=== PATIENT | male | born 2000 | race Caucasian/White ===

== ENCOUNTER 2020-04-09 15:20 | Outpatient (REF) | payer MEDICAID, SELFPAY ==
--- NOTE | 2020-04-09 15:27 | XR_ITS ---
EXAMINATION: XR CERVICAL SPINE CLINICAL INFORMATION: Neck pain COMPARISON: None TECHNIQUE: 4 views of the cervical spine including swimmer's view were obtained. FINDINGS: There is mild curvature of the proximal cervical spine to the right and lower cervical and upper thoracic spine to the left. Bone alignment is otherwise normal. No fracture or dislocation is seen. Disc spaces are normal. Prevertebral soft tissues are normal. XR/XR cervical spine 2V IMPRESSION: Mild curvature of the cervical spine as described above. Otherwise unremarkable exam.
== END 2020-04-09 15:21 | disposition home or self-care (01) ==
LOC: HO.XRAY 15:20
PROVIDERS: PCP Physician Assistant; Visit Provider Physician Assistant
DX: M54.2 Cervicalgia (principal)
CPT/HCPCS: 72040

== ENCOUNTER 2020-08-01 21:12 | Emergency (ER) | payer OTHER, SELFPAY ==
--- NOTE | ~2020-08-01 | XR_ITS ---
EXAMINATION: XR NASAL BONES CLINICAL INFORMATION: hit nose with metal bar COMPARISON: None TECHNIQUE: 3 views of the nasal bones were obtained. FINDINGS: There are no definite fractures of the nasal bone seen. Some horizontal lucencies are seen overlying the left nasal bone but they appear to continue outside of the bone and are not felt to represent a fracture. XR/XR nasal bones min 3V IMPRESSION: No nasal bone fracture seen
[2020-08-01 21:39] VITALS: BP 113/75; PULSE 88; RESP 20; TEMP 37.1; O2SAT 95; BMI 23.0
--- NOTE | 2020-08-01 22:25 | ED.HEATRA ---
HPI - Head Injury General Chief complaint: Head Injury Stated complaint: Head injury Source: patient Mode of arrival: ambulatory Limitations: no limitations History of Present Illness HPI Narrative: 20-year-old male with no significant past medical history presents with nose bleed after [place] his head on [place] [employer] [place]. States that he felt a crack, but did not lose consciousness. Stated that his nose was bleeding but was able to get it to stop prior to my assessment. He does not describe any loss of consciousness, dizziness, lightheadedness, nausea, vomiting, changes in vision, chest pain or pressure, palpitations, shortness of breath, abdominal pain, loss of balance, or any other concerning symptoms. MD Complaint: head injury Onset (ago): hour(s) (Within the hour of arrival) Mechanism of Injury: sports related injury Place: outdoors Loss of Consciousness: no Location of injury: face Severity: moderate Severity scale (1-10): 6 Quality: aching Radiation: none Other Injuries: none Associated symptoms: denies other symptoms Related Data Previous Rx's Medication Instructions Recorded cyclobenzaprine 10 mg tablet 10 mg PO TID 7 Days #21 tab 04/08/20 diclofenac sodium 75 mg 75 mg PO BID 10 Days #20 tab 04/08/20 tablet,delayed release methylphenidate HCl 54 mg 54 mg PO DAILY 30 Days #30 tab 07/24/20 tablet,extended release 24 hr Allergies Allergy/AdvReac Type Severity Reaction Status Date / Time No Known Allergies Allergy Unknown unknown Verified 08/01/20 21:43 [NO KNOWN ALLERGIES] Review of Systems Review of Systems: Constitutional: No Fever, No Chills ENT/Mouth: No Ear Pain, No Hoarseness, No sore throat Eyes: No Eye Pain, No Swelling, No Redness, No Foreign Body Cardiovascular: No Chest Pain, No SOB Respiratory: No Cough, No Dyspnea Gastrointestinal: No Nausea, No Vomiting, No Diarrhea, No abdominal Pain Genitourinary: No Dysuria, No Hematuria Musculoskeletal: positive nasal and frontal head pain, No Myalgias, No Joint Swelling Skin: No Skin lacerations, No rash Neuro: No Weakness, No Numbness, No Paresthesias, No Loss of Consciousness, No Dizziness, No Headache Psych: No Anxiety/Panic, No Depression Heme/Lymph: no easy bruising, no Lymphadenopathy Endocrine: No Polyuria, No Polydipsia Yes all other systems are reviewed and are negative [facility] Past Medical History Attestation statement: The following information was validated with the patient. Source: old records reviewed Surgical History No pertinent past surgical history Family History Family History Father No problems noted. Mother No problems noted. Brother No problems noted. Sister No problems noted. Social History Social History Alcohol intake: current Alcohol intake frequency: holidays/special occasions only Smoking Status: Never smoker Advance Directives: No Advance Directives Information Provided: Yes Physical Exam Vital Signs: Vital Signs: Last Vital Signs Temp 98.8 F 08/01/20 21:39 Pulse 88 08/01/20 21:39 Resp 20 08/01/20 21:39 BP 113/75 08/01/20 21:39 Pulse Ox 95 08/01/20 21:39 Body Mass Index 23.0 Appearance: Alert. Oriented X3. No acute distress. Head: Normal external exam. Normocephalic. Atraumatic. No Mata signs noted. No raccoon eyes noted Eyes: PERRLA. EOMI. Conjunctiva and sclera normal. Eyelids normal. ENT: TM's Normal. Pharynx normal. Uvula midline. Moist mucous membranes. No trismus noted. No drooling noted. No muffled voice noted. No septal hematoma, both nares patent. Tenderness to the bridge of the nose. No malformation noted. Neck: Normal inspection. Neck supple. No adenopathy. Thyroid Normal. No meningeal signs. No neck mass noted. CVS: Normal heart rate and rhythm. Heart sound normal. No murmurs noted. Pulses equal to all extremities. Respiratory: No respiratory distress. Painless inspiration. Breath sounds normal. No wheezes/rales/rhonchi noted. Chest nontender. No accessory muscle usage noted or decreased air movement noted. Abdomen: Soft and nontender. Bowel sounds normal in all 4 quadrants. No distention noted. No organomegaly noted. No visible injury noted. Back: No CVA tenderness. Full range of motion noted. Skin: Skin warm and dry. Normal skin color. Normal skin turgor. No rashes/lesions/lacerations noted. Extremities: No lower extremity edema. Extremities exhibit normal range of motion. Extremities nontender. Neuro: cranial nerves 2-12 intact, no focal neural deficits, strength 5/5 to all extremities, No motor deficit. No sensory deficit. Course Course Course Narrative: 20-year-old male with no significant past medical history presents for head injury that occurred at a skate park. He hit his face into a metal pole, the had immediate epistaxis. Plan of care is for nasal bone x-rays. Tdap vaccine was updated 2 years ago. X-rays negative for acute findings. Plan of care is to discharge home with post concussive/concussion syndrome. Patient verbalized understanding of and agrees to plan of care discharge home. MDM - Head Injury MDM Narrative Medical decision making narrative: Nasal bone fracture, epistaxis Differential Diagnosis Differential diagnosis: Likely concussion without loss of consciousness and postconcussion syndrome Medical Records Attestation: I reviewed the patient's medical records. Imaging Data Nasal bones x-ray: Attestation: I personally reviewed and interpreted this imaging study as follows: Radiologist's impression: EXAMINATION: XR NASAL BONES CLINICAL INFORMATION: hit nose with metal bar COMPARISON: None TECHNIQUE: 3 views of the nasal bones were obtained. FINDINGS: There are no definite fractures of the nasal bone seen. Some horizontal lucencies are seen overlying the left nasal bone but they appear to continue outside of the bone and are not felt to represent a fracture. XR/XR nasal bones min 3V IMPRESSION: No nasal bone fracture seen Discharge Plan Discharge Clinical Impression: Concussion without loss of consciousness Qualifiers: Encounter type: initial encounter Qualified Code(s): S06.0X0A - Concussion without loss of consciousness, initial encounter Patient Disposition: Home, Self-Care Instructions: Concussion (ED), Post Concussion Syndrome (ED), Sports Concussion (ED) Additional Instructions: You were evaluated for head injury with a nose bleed. X-rays are negative for fractures. Your injuries are highly suspicious for concussion. Please follow-up with primary care physician for post concussive care. Thank you for choosing this emergency department for evaluation. Please follow-up with primary care physician as needed. Return to the emergency department for any new, concerning, or worsening symptoms. Prescriptions: No Action methylphenidate HCl 54 mg tablet extended release 24hr 54 mg PO DAILY 30 Days Qty: 30 RF: 0 cyclobenzaprine 10 mg tablet 10 mg PO TID 7 Days Qty: 21 RF: 0 diclofenac sodium 75 mg tablet,delayed release (DR/EC) 75 mg PO BID 10 Days Qty: 20 RF: 0 Stand Alone Forms: Work/School Release Interventions: ED Discharge Assessment Last Done: 08/02/20 00:10 Discharge Date/Time: 08/02/20 00:49
== END 2020-08-02 00:49 | disposition home or self-care (01) ==
PROVIDERS: Emergency Provider Internal Medicine; PCP Physician Assistant
DX: S06.0X0A Concussion without loss of consciousness, initial encounter (principal); J34.89 Other specified disorders of nose and nasal sinuses; Y93.51 Activity, roller skating (inline) and skateboarding; Y93.9 Activity, unspecified; Y92.488 Other paved roadways as the place of occurrence of the external cause; Y99.8 Other external cause status; Z79.899 Other long term (current) drug therapy
CPT/HCPCS: 70160; 99284

== ENCOUNTER 2021-02-25 13:49 | Outpatient (REF) | payer OTHER, SELFPAY ==
[2021-02-25 14:51] LABS: Influenza A PCR NEGATIVE (Negative); Influenza B PCR NEGATIVE (Negative); Resp Syncy Virus RNA Qual PCR NEGATIVE (Negative); SARS COV2 PCR INHOUSE NEGATIVE (Negative)
== END 2021-02-25 13:50 | disposition home or self-care (01) ==
LOC: HO.LNP 13:49
PROVIDERS: Visit Provider Internal Medicine
DX: Z20.822 Contact with and (suspected) exposure to COVID-19 (principal); R43.9 Unspecified disturbances of smell and taste
CPT/HCPCS: 0241U

== ENCOUNTER 2021-04-12 15:43 | Emergency (ER) | payer OTHER, SELFPAY ==
--- NOTE | ~2021-04-12 | XR_ITS ---
EXAMINATION: XR SOFT TISSUE NECK CLINICAL INDICATION: Sore throat and drooling. COMPARISON: None TECHNIQUE: 2 views of the soft tissue neck were obtained. Findings: The nasopharyngeal and pharyngeal airway is widely patent. A prominent soft tissue density seen in the oropharynx question prominent lingual adenoids versus swollen soft palate uvula. There is no ballooning of the airway. The epiglottis is normal. XR/XR soft tissue neck IMPRESSION: Likely enlarged bilateral tonsils without any airway narrowing or distention. Differential diagnoses includes swollen soft palate uvula.
--- NOTE | ~2021-04-12 | CT_ITS ---
EXAMINATION: CT SOFT TISSUE NECK WITH CONTRAST CLINICAL INFORMATION: Right peritonsillar abscess. COMPARISON: None TECHNIQUE: Following the intravenous administration of 100 mL of Omnipaque 350 intravenous contrast, helical imaging was performed in the axial plane with generation of coronal and sagittal reformatted images. This CT examination was performed using dose optimization techniques as appropriate, variously including the following: *Automated exposure control *Adjustment of mA and/or kV according to patient size (this includes techniques or standardized protocols for targeted exams where dose is matched to indication/reason for exam; i.e. extremities or head) *Use of iterative reconstruction technique DLP: 1002 mGy-cm FINDINGS: No cervical adenopathy is identified. The parotid glands are homogeneous in attenuation. The submandibular glands are normal. There is bilateral heterogeneous enlarged lingular tonsils with narrowing and deviation of activity to the left. Small right peritonsillar abscess suspected at the level of hard palate measuring 23 Hounsfield units on axial image 24/8. There is edema extending into the right tongue base and lateral hypopharynx. There is moderate narrowing of oropharyngeal airway. The laryngeal structures are normal. The parapharyngeal fat is preserved. The carotid sheath vasculature opacify normally. No extra mucosal soft tissue mass or fluid collection is seen. No retropharyngeal fluid collection is seen. The thyroid gland is normal. The superior mediastinum is unremarkable. The lung apices are clear. The mastoid air cells and visualized portions of the paranasal sinuses are well-aerated. The temporomandibular joints are normal. No periapical disease is identified. No osseous abnormalities are seen. The imaged portions of the brain parenchyma are unremarkable. CT/CT soft tissue neck w con IMPRESSION: Bilateral lingual tonsillar hypertrophy secondary to inflammatory infectious etiology. There is a small right peritonsillar abscess at the level of hard palate and more edema on the right side extending through the hypopharynx and to the base of the tongue. No abnormal lymphadenopathy. The sinuses are clear.
[2021-04-12 15:51] VITALS: BP 139/84; PULSE 98; RESP 18; TEMP 36.8; O2SAT 99; BMI 23.7
--- NOTE | 2021-04-12 16:42 | ED_ITS ---
HPI - General Adult General Chief complaint: General Medical Stated complaint: swollen throat Time Seen by Provider: 04/12/21 16:09 Source: patient Mode of arrival: ambulatory Limitations: no limitations History of Present Illness HPI narrative: Patient complaining of sore throat for last 3- 4 days painful to swallow mostly pain on the right side of the throat, no fever no chills muffled voice painful to swallow no difficulty breathing Related Data Previous Rx's Medication Instructions Recorded amoxicillin 500 mg capsule 500 mg PO TID 5 Days #15 cap 03/12/21 methylphenidate HCl 54 mg 54 mg PO DAILY 30 Days #30 tab 04/07/21 tablet,extended release 24 hr amoxicillin 875 mg-potassium 1 tab PO BID #20 tab 04/12/21 clavulanate 125 mg tablet (Augmentin) ibuprofen 600 mg tablet 600 mg PO Q6H PRN #20 tab 04/12/21 Allergies Allergy/AdvReac Type Severity Reaction Status Date / Time No Known Allergies Allergy Unknown unknown Verified 04/12/21 15:51 [NO KNOWN ALLERGIES] Review of Systems Review of Systems: Yes all other systems are reviewed and are negative [facility] Past Medical History Surgical History No pertinent past surgical history Family History Family History Father No problems noted. Mother No problems noted. Brother No problems noted. Sister No problems noted. Social History Social History Housing: House Alcohol intake: current Alcohol intake frequency: holidays/special occasions only Patient Tobacco Use Status: Never used Tobacco e-Cigarette/Vaping Use: Never Used Second Hand Smoke Exposure: No Advance Directives: No Advance Directives Information Provided: Yes service: No Current occupational status: employed Current occupation: [employer] Physical Exam Vital Signs: Vital Signs: Last Vital Signs Temp 98.3 F 04/12/21 15:51 Pulse 98 04/12/21 15:51 Resp 18 04/12/21 15:51 BP 139/84 04/12/21 15:51 Pulse Ox 99 04/12/21 15:51 BMI result Body Mass Index 23.7 Appearance: Alert. Oriented X3. No acute distress. ENT: Pharynx normal. Oral Mucosa moist unable to open mouth completely because of pain, right tonsillar swelling Neck: Normal inspection. Neck supple. No stridor CVS: Normal heart rate and rhythm. Pulses normal. Respiratory: No respiratory distress. Equal air entry bilateral, Skin: Skin warm and dry. Normal skin color. Normal skin turgor. Neuro: Oriented X 3. Const: General: well developed and in distress moderate Orientation/consciousness: patient oriented x3 HENMT: Mouth/tongue images: 1. Swollen tonsils with bulging on the right side Neck: Neck: Yes normal visual inspection and Yes no lymphadenopathy Resp: Effort & Inspection: normal respiratory effort Auscultation: clear to auscultation bilaterally Cardio: Rate: regular rate Rhythm: regular rhythm Heart sounds: S1 normal heart sound present and S2 normal heart sound present Neuro: General: patient oriented x3 Procedures Abscess I/D Site: other (Right peritonsillar abscess) Local Anesthetic: other anesthetic (Lidocaine 4% spray) Amount of anesthesia used (mL): 5 Technique: needle aspiration Amount of fluid expressed (mL): 0 Medical Decision Making MDM Narrative Medical decision making narrative: Patient's small right peritonsillar abscess needle aspiration was tried 3 times no pus drained. Procedure abandoned. We will give patient Decadron and IV Rocephin 1 dose discharge patient home no respiratory distress at this time Lab Data Result diagrams: 04/12/21 16:50 04/12/21 16:50 Labs: Lab Results 04/12/21 04/12/21 Range/Units 16:50 16:50 WBC 14.6 H (4.8-10.8) X10*3/uL RBC 5.07 (4.60-5.80) X10*6/uL Hgb 15.0 (14.0-18.0) g/dl Hct 44.8 (42.0-52.0) % MCV 88.4 (80.0-98.0) fL MCH 29.6 (27.0-33.0) pg MCHC 33.5 (31.0-36.0) g/dl RDW 12.4 (11.0-16.0) % Plt Count 344 (160-400) X10*3/uL MPV 9.9 (9.4-12.4) fL Immature Gran % (Auto) 0.3 (0.0-0.4) % Neut % (Auto) 79.8 H (45-73) % Lymph % (Auto) 9.5 L (20-40) % [place] % (Auto) 10.1 (2-11) % Eos % (Auto) 0.1 (0-4) % Baso % (Auto) 0.2 (0-2) % Lymph # (Auto) 1.4 (1.2-4.9) X10*3/uL [place] # (Auto) 1.5 H (0.1-1.2) X10*3/uL Eos # (Auto) 0.0 (0.0-0.4) X10*3/uL Baso # (Auto) 0.0 (0.0-0.2) X10*3/uL Abs Immat Gran (auto) 0.05 H (0.00-0.03) X10*3/uL Absolute Neuts (auto) 11.7 H (2.0-8.3) x10*3/uL Absolute Nucleated RBC 0.000 (0.0-0.012) X10*3/uL Nucleated RBC % (auto) 0.0 (0.0-0.2) /100WBC Sodium 137 (135-145) mmol/L Potassium 4.2 (3.3-5.1) mmol/L Chloride 99 (96-108) mmol/L Carbon Dioxide 29 (22-29) mmol/L Anion Gap 13 (12-20) BUN 6 L (9-16) mg/dL Creatinine 0.93 (0.5-1.4) mg/dL Estim Creat Clear Calc 132.6 Estimated GFR > 60 Random Glucose 102 (60-115) mg/dL Calcium 9.8 (8.4-10.2) mg/dL Discharge Plan Discharge Clinical Impression: Abscess, peritonsillar Patient Disposition: Home, Self-Care Instructions: Peritonsillar Abscess (ED) Additional Instructions: Drink plenty of fluids Antibiotics as advised Follow with ENT if not better Prescriptions: New ibuprofen 600 mg tablet 600 mg PO Q6H PRN (Reason: pain) Qty: 20 RF: 0 amoxicillin-pot clavulanate [Augmentin] 875-125 mg tablet 1 tab PO BID Qty: 20 RF: 0 No Action methylphenidate HCl 54 mg tablet extended release 24hr 54 mg PO DAILY 30 Days Qty: 30 RF: 0 amoxicillin 500 mg capsule 500 mg PO TID 5 Days Qty: 15 RF: 0 Referrals: Scott Ga [Physician] - 5 days
[2021-04-12] MEDS: Ketorolac Tromethamine 30 MG/ML VIAL IVPUSH (16:51)
[2021-04-12] MEDS: dexAMETHasone sod phosphate 10 MG/ML VIAL IVPUSH (16:51)
[2021-04-12 16:53] LABS: MANUAL DIFF FLAG NO
[2021-04-12 16:55] LABS: Basophils Percent Auto 0.2 % (0-2); Eosinophils Percent Auto 0.1 % (0-4); Hematocrit 44.8 % (42.0-52.0); Imm Gran Abs Auto 0.05 X10*3/uL (0.00-0.03); Imm Gran Pct Auto 0.3 % (0.0-0.4); Lymphocytes Absolute Auto 1.4 X10*3/uL (1.2-4.9); Lymphocytes Percent Auto 9.5 % (20-40); Mean Corpuscular HGB Conc 33.5 g/dl (31.0-36.0); Mean Corpuscular Hemoglobin 29.6 pg (27.0-33.0); Mean Corpuscular Volume 88.4 fL (80.0-98.0); Mean Platelet Volume 9.9 fL (9.4-12.4); Monocytes Absolute Auto 1.5 X10*3/uL (0.1-1.2); Monocytes Percent Auto 10.1 % (2-11); Neutrophils Absolute Auto 11.7 x10*3/uL (2.0-8.3); Neutrophils Percent Auto 79.8 % (45-73); Platelet Count 344 X10*3/uL (160-400); Red Blood Count 5.07 X10*6/uL (4.60-5.80); Red Cell Distribution Width 12.4 % (11.0-16.0); White Blood Count 14.6 X10*3/uL (4.8-10.8)
[2021-04-12] MEDS: cefTRIAXone sodium 1 GM in 0.9 % Sodium Chloride 50 ML IV (16:55)
[2021-04-12 17:16] LABS: Anion Gap 13 (12-20); Blood Urea Nitrogen 6 mg/dL (9-16); Calcium 9.8 mg/dL (8.4-10.2); Carbon Dioxide 29 mmol/L (22-29); Chloride 99 mmol/L (96-108); Creatinine Clr Calc Pharmacy 132.6; Estimated Glomerular Filt Rate > 60; Glucose Random 102 mg/dL (60-115); Potassium 4.2 mmol/L (3.3-5.1); Sodium 137 mmol/L (135-145)
[2021-04-12] MEDS: iohexoL 350 MG/ML 100 ML INFUS..BTL 60 ML IV (17:49)
== END 2021-04-12 19:24 | disposition home or self-care (01) ==
PROVIDERS: Emergency Provider Internal Medicine; PCP Physician Assistant
DX: J36 Peritonsillar abscess (principal)
CPT/HCPCS: 36415; 70360; 70491; 80048; 85025; 96365; 96375; 99283; 99284; J0696; J1100; J1885; Q9967

== ENCOUNTER 2021-06-07 11:28 | Outpatient (REF) | payer OTHER, SELFPAY ==
--- NOTE | ~2021-06-07 | XR_ITS ---
EXAMINATION: XR ankle RT 2V CLINICAL INFORMATION: Reason for Exam M25.571 - Pain in right ankle and joints of right foot COMPARISON: None. TECHNIQUE: 3 view series right ankle FINDINGS: Mild soft tissue prominence is present adjacent to the lateral malleolus. The talar dome is intact. No fractures or subluxations are identified. Base of the fifth metatarsal appears intact. No dystrophic calcifications or arthropathic changes visualized. XR/XR ankle RT 2V IMPRESSION: Lateral malleolar soft tissue inflammatory changes. No fractures.
== END 2021-06-07 11:29 | disposition home or self-care (01) ==
LOC: HO.HMGCX 11:28
PROVIDERS: Visit Provider Physician Assistant
DX: M25.571 Pain in right ankle and joints of right foot (principal)
CPT/HCPCS: 73600

== ENCOUNTER 2021-12-08 09:26 | Outpatient (REF) | payer OTHER, SELFPAY ==
--- NOTE | ~2021-12-08 | XR_ITS ---
EXAMINATION: XR ELBOW, RIGHT CLINICAL INFORMATION: Sprain COMPARISON: None TECHNIQUE: AP, lateral, and oblique views of the right elbow. FINDINGS: No fracture or dislocation. No joint effusion. No focal soft tissue swelling. Tiny osteophyte off the coronoid process. No radiopaque foreign body. XR/XR elbow RT min 3V IMPRESSION: No fracture, dislocation or joint effusion.
== END 2021-12-08 09:27 | disposition home or self-care (01) ==
LOC: HO.HMGCX 09:26
PROVIDERS: PCP Physician Assistant; Visit Provider Internal Medicine
DX: S53.401A Unspecified sprain of right elbow, initial encounter (principal)
CPT/HCPCS: 73080

== ENCOUNTER 2022-11-28 18:28 | Emergency (ER) | payer OTHER, SELFPAY ==
--- NOTE | ~2022-11-28 | US_ITS ---
EXAMINATION: US SCROTUM CLINICAL INFORMATION: Pain. Swelling. COMPARISON: None available. TECHNIQUE: A sonogram of the scrotum was performed assessing ashley-scale appearance and color Doppler flow. Spectral Doppler analysis of the arterial and venous flow were performed in the testes bilaterally. FINDINGS: RIGHT: Right testicle measures 5.1 x 2.6 x 3.0 cm, volume 21 mL. No focal testicular parenchymal lesions are visualized. Spectral Doppler analysis of the arterial and venous flow is normal in the right testis. Right epididymal head is normal in size. No right hydrocele or varicocele is seen. Right epididymal color signal is normal. LEFT: Left testicle measures 4.9 x 2.6 x 3.2 cm, volume 21 mL. No focal testicular parenchymal lesions are visualized. Spectral Doppler analysis of the arterial and venous flow is minimally increased subjectively in the left testis. Left epididymal head is normal in size. No left hydrocele or varicocele is seen. Left epididymal color signal is normal. US/US scrotum IMPRESSION: No focal testicular abnormality. Doppler vascular waveforms and color signal present within each testicle No abscess demonstrated
--- NOTE | ~2022-11-28 | US_ITS ---
EXAMINATION: US SCROTUM CLINICAL INFORMATION: Pain. Swelling. COMPARISON: None available. TECHNIQUE: A sonogram of the scrotum was performed assessing ashley-scale appearance and color Doppler flow. Spectral Doppler analysis of the arterial and venous flow were performed in the testes bilaterally. FINDINGS: RIGHT: Right testicle measures 5.1 x 2.6 x 3.0 cm, volume 21 mL. No focal testicular parenchymal lesions are visualized. Spectral Doppler analysis of the arterial and venous flow is normal in the right testis. Right epididymal head is normal in size. No right hydrocele or varicocele is seen. Right epididymal color signal is normal. LEFT: Left testicle measures 4.9 x 2.6 x 3.2 cm, volume 21 mL. No focal testicular parenchymal lesions are visualized. Spectral Doppler analysis of the arterial and venous flow is minimally increased subjectively in the left testis. Left epididymal head is normal in size. No left hydrocele or varicocele is seen. Left epididymal color signal is normal. US/US scrotum doppler IMPRESSION: No focal testicular abnormality. Doppler vascular waveforms and color signal present within each testicle No abscess demonstrated
[2022-11-28 18:46] VITALS: BP 117/71; PULSE 64; RESP 18; TEMP 37.1; O2SAT 96; BMI 25.1
--- NOTE | 2022-11-28 18:47 | ED.MALEGU ---
HPI - Male Genitourinary General Chief complaint: General Medical Stated complaint: swollen testicles Time Seen by Provider: 11/28/22 20:29 Source: patient Mode of arrival: ambulatory History of Present Illness HPI Narrative: 22-year-old male with subjective swelling of testicles left-sided greater than right this started approximately 1300 this afternoon and denies any acute trauma, denies any pain but endorses some discomfort . He denies any fevers or chills or penile discharge. He does report mild abdominal discomfort. Related Data Previous Rx's Medication Instructions Recorded simethicone 80 mg chewable tablet 80 mg PO TID-QID PRN abdominal 07/07/22 (Gas Relief 80 (simethicone)) distention 30 days #120 tabs pantoprazole 20 mg tablet,delayed 20 mg PO DAILY #30 tabs 08/02/22 release Allergies Allergy/AdvReac Type Severity Reaction Status Date / Time No Known Allergies Allergy Unknown unknown Verified 07/07/22 11:29 [NO KNOWN ALLERGIES] Review of Systems Review of Systems: Pertinent positives and negatives as stated in [facility] Past Medical History Source: nursing notes reviewed Surgical History No pertinent past surgical history S/P tonsillectomy Family History Family History Father No problems noted. Mother No problems noted. Brother No problems noted. Sister No problems noted. Social History Social History Housing: House Alcohol intake: current Alcohol intake frequency: holidays/special occasions only Patient Tobacco Use Status: Never used Tobacco e-Cigarette/Vaping Use: Former Use Second Hand Smoke Exposure: No Advance Directives: No Advance Directives Information Provided: No service: No Current occupational status: employed Current occupation: [employer] Cognitive needs: No Hearing needs: No Vision needs: Yes (contacts) Physical Exam Vital Signs: Vital Signs: Last Vital Signs Temp 98.8 F 11/28/22 18:46 Pulse 64 11/28/22 18:46 Resp 18 11/28/22 18:46 BP 117/71 11/28/22 18:46 Pulse Ox 96 11/28/22 18:46 O2 Del Method Room Air 11/28/22 18:46 BMI result Body Mass Index 25.1 VITAL SIGNS: Reviewed. GENERAL: Well developed, well nourished, in no acute distress. HEAD: Normocephalic/atraumatic EYES: PERRLA, EOMI LUNGS: Normal breath sounds. No adventitious sounds or accessory muscle use. SpO2<96> CARDIOVASCULAR: Regular rate and rhythm without noted murmurs ABDOMEN: Soft, non-tender, non-distended with bowel sounds. : [[employer]-Sade]-scrotum is without erythema or induration, no epididymal tenderness to palpation, no perineal erythema/induration/pain, no noted hernia MUSCULOSKELETAL: No tenderness, deformities, or effusions noted on gross inspection. EXTREMITIES: No cyanosis, clubbing or edema. SKIN: Inspection of the skin reveals no rashes NEUROLOGIC: Alert and oriented x 4. Strength and sensation to light touch were grossly intact x 4. Course Course Course Narrative: RME: 22yo M w/PMHx [employer], GERD, ADHD, c/o swollen left testicle x today w/ assoc LLQ abdominal pain since 2PM. Denies N/V, injury/fall, discharge, urinary sx UA, STI testing, US ordered Full HPI, ROS and PE to be performed by primary ED provider. Medical Decision Making Medical Decision Making [facility] Narrative: 22-year-old male with history and clinical presentation, DDX: STI, UTI, no clinical suspicion for testicular torsion, possible varicocele, no clinical suspicion for scrotal cellulitis/Gavin's/inguinal hernia I reviewed all investigations and urinalysis is negative for UTI or hematuria. Testicular ultrasound does not demonstrate any evidence for torsion and no evidence of epididymitis or varicocele. Low clinical suspicion for STI at this time and instructed patient follow-up on STI results by accessing the patient portal. Differential Diagnosis Differential Diagnoses: The differential diagnosis associated with the presentation includes Please see the discussion above Admission/Observation Consideration of admission/observation: Escalation of care including admission/observation considered Please see the discussion above Lab Data [facility] Lab Attestation statement: I reviewed the patient's lab results. Please see the discussion above Labs: Lab Results 11/28/22 Range/Units 20:08 Urine Color Yellow Urine Appearance Clear Urine pH 6.5 (5.0-9.0) Ur Specific [place] 1.010 (1.005-1.025) Urine Protein Negative (Neg-Trace) mg/dL Urine Glucose (UA) Negative (Negative) mg/dL Urine Ketones Negative (Negative) mg/dL Urine Blood Negative (Negative) Urine Nitrite Negative (Negative) Ur Leukocyte Esterase Negative (Negative) Radiology Impression Discussion of test interpretation with radiology: I have reviewed the radiologist's reading. Radiologist Impression: Please see the discussion above Discharge Plan Discharge Clinical Impression: Testicular discomfort Patient Disposition: Home, Self-Care Instructions: Scrotal Pain (ED) Additional Instructions: 1. Recommend [id number] Tylenol/ibuprofen as needed for any discomfort. 2. Recommend the use of briefs for the next 3-4 days to help relieve any discomfort or swelling you may be experiencing. 3. I recommend that you follow-up on the patient portal for any remaining tests. 4. Please follow-up with primary care provider on Wednesday morning. Return to the ER for any worsening symptoms. Prescriptions: No Action pantoprazole 20 mg tablet,delayed release (DR/EC) 20 mg PO DAILY Qty: 30 1RF simethicone [Gas Relief 80 (simethicone)] 80 mg tablet,chewable 80 mg PO TID-QID PRN (Reason: abdominal distention) 30 Days Qty: 120 0RF Referrals: Chano Hi PA-C [Primary Care Provider] -
[2022-11-28 20:16] LABS: Appearance Urine Clear; Color Urine Yellow; Glucose Urine UA Negative (Negative); Leukocyte Esterase Urine Negative (Negative); Nitrite Urine Negative (Negative); PH 6.5 (5.0-9.0); Urine Blood Negative (Negative); Urine Ketones Negative (Negative); Urine Protein Negative (Neg-Trace)
--- OUTSIDE RECORDS SUMMARY | 2022-11-28 20:41 | XMS_ITS | Continuity of Care Document ---
Author Name Unknown Organization [facility] ter Address [address] [place] [id number]- Care Team Providers Care Dry Janitor Name Role Phone Josephine MATTHEW, Madison Turner Primary Care Physician Encounter [facility] [place] Date(s): 05/19/19 - 05/19/[address] [address]- [facility] Encounter Diagnosis Testicular pain(Final) - 05/19/19 Discharge Disposition: A-D/C Home Attending Physician: Alan Akbar MD Admitting Physician: Alan Akbar MD Referring Physician: Not on Staff, Referring MD Allergies, Adverse Reactions, Alerts Substance Reaction Severity Status NKA Active Immunizations Given and Recorded Vaccine Date Status Refusal Reason Varicella Virus Vaccine 1 11/11/07 Given Varicella Virus Vaccine 2 06/12/99 Given Tet/Diphth/Acel, Pertussis (oldterm) 3 11/11/07 Gi jodie Poliovirus Vaccine, Inactivated 4 06/20/02 Given Poliovirus Vaccine, Inactivated 5 02/25/99 Given Poliovirus Vaccine, Inactivated 6 98 Given Poliovirus Vaccine, Inactivated 7 98 Given Measles/Mumps/Rubella Virus Vaccine 8 06/20/02 Giv en Measles/Mumps/Rubella Virus Vaccine 9 06/12/99 Giv en Diphth/Pertussis,Acel/Tetanus (oldterm) 10 06/20/02 Given Diphth/Pertussis,Acel/Tetanus (oldterm) 11 09/26/99 Given Diphth/Pertussis,Acel/Tetanus (oldterm) 12 02/25/99 Given Diphth/Pertussis,Acel/Tetanus (oldterm) 13 98 Given Diphth/Pertussis,Acel/Tetanus (oldterm) 14 98 Given Prevnar Inj (oldterm) 15 12/27/00 Given Haemophilus B Conj Vaccine (oldterm) 16 09/26/99 G iven Haemophilus B Conj Vaccine (oldterm) 17 02/25/99 G iven Haemophilus B Conj Vaccine (oldterm) 18 98 G iven Haemophilus B Conj Vaccine (oldterm) 19 98 G iven Hepatitis B Vaccine (old term) 20 02/25/99 Given Hepatitis B Vaccine (old term) 21 98 Given Hepatitis B Vaccine (old term) 98 Given 1Admin Note: VIS 06/09/07 2Admin Note: [facility] 3Admin Note: VIS 10/07/05 4Admin Note: [facility] 5Admin Note: [facility] 6Admin Note: [facility] 7Admin Note: [facility] 8Admin Note: [facility] 9Admin Note: [facility] 10Admin Note: [facility] 11Admin Note: [facility] 12Admin Note: [facility] 13Admin Note: [facility] 14Admin Note: [facility] 15Admin Note: [facility] 16Admin Note: [facility] 17Admin Note: [facility] 18Admin Note: [facility] 19Admin Note: [facility] 20Admin Note: [facility] 21Admin Note: [facility] Medications methylphenidate 36 mg oral tablet, extended release 1 tablet = 36 mg, By Mouth, Daily in AM, Fill on or after 09/05/17, # 30 tablet, 0 Refills, Maintenance, 07/06/17 14:20:03 EDT Start Date: 07/06/17 Status: Ordered methylphenidate 54 mg oral tablet, extended release 1 tablet = 54 mg, By Mouth, Daily in AM, Fill on or after 09/05/17, # 30 tablet, 0 Refills, Maintenance, 07/06/17 14:20:04 EDT, ER Tablet Start Date: 07/06/17 Status: Ordered Tenex 1 mg oral tablet 1 mg, 1, tablet, By Mouth, 2 times a day, # 60 tablet, Refills 3, Tot. Refills 3, Maintenance, 07/06/17 14:20:30 EDT, Route to Pharmacy Electronically, [id number], [facility]/pharmacy #[id number] Start Date: 07/06/17 Status: Ordered Problem List Condition Effective Dates Status Health Status Inform ant ADHD(Confirmed) 02/18/11 Active Vital Signs Most recent to oldest [Reference Range]: 1 2 3 Height 178 cm (05/19/19 7:41 PM) 178 cm (05/19/19 6:06 PM) 178 cm (05/19/19 5:07 PM) Oxygen Saturation [94-100 %] 99 % (05/19/19 7:41 PM) 100 % (05/19/19 6:06 PM) 100 % (05/19/19 5:06 PM) Pulse Rate [55-90 bpm] 84 bpm (05/19/19 7:41 PM) 85 bpm (05/19/19 6:06 PM) 98 bpm *H* (05/19/19 5:06 PM) Blood Pressure [90-138/55-84 mm Hg] 121/74mm Hg (05/19/19 7:41 PM) 128/76mm Hg (05/19/19 6:06 PM) Respiratory Rate [16-30 br/min] 18 br/min (05/19/19 7:41 PM) 20 br/min (05/19/19 6:06 PM) Temperature [96.8-100.4 DegF] 98.4 DegF (05/19/19 6:06 PM) Mode of Delivery (Oxygen) Room air (05/19/19 6:06 PM) Room air (05/19/19 5:06 PM) Blood pressure sites Arm, left (05/19/19 6:06 PM) Temperature Route Oral (05/19/19 6:06 PM)
[2022-11-28] MEDS: Acetaminophen 325 MG TABLET 975 MG PO (21:18)
[2022-11-28] MEDS: Ibuprofen 400 MG TABLET PO (21:18)
[2022-11-29 01:27] LABS: CT PCR NOT DETECTED (Not Detect.); NG PCR NOT DETECTED (Not Detect.)
== END 2022-11-28 21:24 | disposition home or self-care (01) ==
PROVIDERS: Physician Assistant; Emergency Provider Student in an Organized Health Care Education/Training Program; PCP Physician Assistant
DX: N50.812 Left testicular pain (principal); N50.811 Right testicular pain; N50.89 Other specified disorders of the male genital organs; R10.32 Left lower quadrant pain
CPT/HCPCS: 0353U; 76870; 81003; 93975; 99283; 99284

== ENCOUNTER 2023-07-13 07:53 | Outpatient (AMB) | payer OTHER, SELFPAY ==
[2023-07-13 07:57] VITALS: BP 118/68; PULSE 62; O2SAT 99; BMI 28.0
--- NOTE | 2023-07-13 07:57 | MHC.PC.OV ---
Vital Signs 07/13/23 07:57 Height 5 ft 11 in Weight 201 lb BMI 28.0 BP 118/68 Blood Pressure Location Lt brachial Position Sitting Pulse 62 Pulse Source Pulse Oximeter Pulse Oximetry (%) 99 Oxygen Delivery Method Room Air Intake Visit Reasons: Annual Exam Allergies No Known Allergies [NO KNOWN ALLERGIES] Allergy (Unknown, Verified 07/13/23 08:06) unknown Medication List - Last Reconciled 07/13/23 by Chano Hi PA-C pantoprazole 20 mg PO DAILY simethicone (Gas Relief 80 (simethicone)) 80 mg PO TID-QID PRN 30 days Tobacco use date assessed: 07/13/23 Dental Screening Dental Screen Date: 07/13/23 Did you have a dental visit in the last 12 months?: Yes Did you have a dental problem in the last 6 months where you did not have access to dental care?: No Was dental information given to patient?: Patient has dentist HPI Annual Exam HPI Details Patient is a 23-year-old male here today for annual physical. Patient has a past medical history significant for ADHD. Concerns--> reports continues to have localized right elbow pain over the last 2 years. He reports playing basketball and injured his right elbow. He got x-ray at the time though no dislocations or fractures. Reports the pain worsens when he puts pressure on his elbow. He reports the pain does come radicular symptoms up his right upper extremity into his neck. Otherwise has not lost any strength or ability in his right upper extremity. PLAN: Will set him up with occupational therapy for possible cubital tunnel nerve entrapment. If fails physical therapy will consider MRI imaging of the right elbow. .. ADHD: Has discontinued his use of Concerta as he felt it he does not needed anymore. 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 Vaccines: Up-to-date with COVID vaccine, tetanus vaccine [facility] Surgical History S/P tonsillectomy No pertinent past surgical history Family History Father No problems noted. Mother No problems noted. Brother No problems noted. Sister No problems noted. Social History (Updated 07/13/23 @ 08:10 by Chano Hi PA-C) Housing: House Alcohol intake: current Alcohol intake frequency: holidays/special occasions only Patient Tobacco Use Status: Never used Tobacco e-Cigarette/Vaping Use: Former Use Second Hand Smoke Exposure: No Substance Use Type: Marijuana service: No Current occupational status: employed Current occupation: [employer] Cognitive needs: No Hearing needs: No Vision needs: Yes (contacts) Questionnaire PHQ-9 Over the last 2 weeks, how often have you been bothered by any of the following problems? 1. Little interest or pleasure in doing things: not at all 2. Feeling down, depressed, or hopeless: not at all 3. Trouble falling or staying asleep, or sleeping too much: not at all 4. Feeling tired or having little energy: not at all 5. Poor appetite or overeating: not at all 6. Feeling bad about yourself - or that you are a failure or have let yourself or your family down: not at all 7. Trouble concentrating on things, such as reading the newspaper or watching television: not at all 8. Moving or speaking so slowly that other people could have noticed. Or the opposite - being so fidgety or restless that you have been moving around a lot more than usual: not at all 9. Thoughts that you would be better off or of hurting yourself in some way: not at all Total score: 0 Depression Screening Interpretation: Negative Depression Screening Done: Yes 51366 - PHQ-9 Billing: Yes Source: Developed by Drs. Simon Pompa, Kamilla Merino, Max Pete and colleagues, with an educational mane from [employer]. Thrive Questionnaire Date Thrive assessed: 07/13/23 I am a: Patient What is your living situation today?: I have a steady place to live Within the past 12 months, did the food you bought not last and you didn't have the money to get more?: Never true Within the past 12 months, did you worry whether your food would run out before you got money to buy more?: Never true Do you have trouble paying for medicines?: No Do you have trouble getting transportation to medical appointments?: No Do you have trouble paying your heating and electricity bill?: No Do you have trouble taking care of your child, family member or friend?: No Do you have trouble with day-to-day activities such as bathing, preparing meals, shopping, managing finances, etc.?: No Are you currently unemployed and looking for a job?: No Are you interested in more education?: No Currently or been in a relationship where the following occur: no concerns reported THRIVE Score: 0 AUDIT C Alcohol Use Questionnaire (AUDIT-C) 1. How often do you have a drink containing alcohol?: Monthly or less 2. How many drinks containing alcohol do you have on a typical day when you are drinking?: 1 or 2 3. How often do you have six or more drinks on one occasion?: Never Total Score: 1 JUAN C-7 AMB Questionnaire JUAN C-7 Date JUAN C - 7 assessed: 07/13/23 Feeling nervous, anxious, or on edge: 0 = Not at all Not being able to stop or control worryin = Not at all Worrying too much about different things: 0 = Not at all Trouble relaxin = Not at all Being so restless that it is hard to sit still: 0 = Not at all Becoming easily annoyed or irritable: 0 = Not at all Feeling afraid as if something awful might happen: 0 = Not at all Total JUAN C-7 score (0-4 normal; 5-9 mild; 10-14 moderate; 15-21 severe): 0 Source: Developed by Drs. Simon Pompa, Kamilla Merino, Max Pete and colleagues, with an educational mane from [employer]. JUAN C-7 Assessment Billing JUAN C-7 Assessment Tool: JUAN C-7 Assessment 59020 Review of Systems Const Denies body aches, Denies chills, Denies excessive sweating, Denies fatigue, Denies fever(s) and Denies headache(s) Eyes Denies blurry vision ENT Denies dysphagia, Denies vertigo, Denies dizziness, Denies headache(s), Denies hearing loss and Denies tinnitus Card Denies chest pain, Denies chest pain with activity, Denies syncope, Denies irregular heart rhythm and Denies dyspnea Resp Denies chest congestion, Denies cough, Denies hemoptysis, Denies dyspnea and Denies wheezing GI Denies abdominal pain, Denies melena, Denies hematochezia, Denies coffee ground emesis, Denies dysphagia, Denies diarrhea, Denies nausea and Denies vomiting Denies difficulty urinating, Denies dysuria, Denies urinary frequency, Denies urinary hesitancy and Denies urinary urgency Musc Denies arthralgias, Denies limited range of motion, Denies muscle cramps and Denies muscle weakness Skin/Breast Denies rash and Denies skin ulcer Neuro Denies Abnormal speech present, Denies confusion, Denies vertigo, Denies dizziness, Denies syncope, Denies headache(s), Denies memory loss and Denies seizure-like activity Psych Denies anxiety, Denies confusion, Denies depression, Denies memory loss, Denies panic attacks and Denies paranoia Endo Denies excessive sweating, Denies fatigue, Denies flushing, Denies polydipsia and Denies polyuria Aller/Immun Denies wheezing Physical exam (Primary Care) Vital Signs: Last Vital Signs Pulse 62 07/13/23 07:57 BP 118/68 07/13/23 07:57 Pulse Ox 99 07/13/23 07:57 Oxygen Delivery Method Room Air 07/13/23 07:57 BMI result Body Mass Index 28.0 Tobacco/Smoking Status: Tobacco use Status Tobacco use date assessed 07/13/23 07/13/23 08:02 Patient Tobacco Use Status Never used Tobacco 07/13/23 08:10 e-Cigarette/Vaping Use Former Use 07/13/23 08:10 PHQ-9: PHQ-9 Score PHQ-9: Total score 0 07/13/23 08:07 Depression Screening Interpretation: Negative Thrive Assessment: Date of Thrive Assessment Date Thrive assessed 07/13/23 07/13/23 08:02 Currently or been in a relationship where the following occur: no concerns reported Const General: cooperative, comfortable, no acute distress, alert and awake; No confusion Orientation/consciousness: oriented to person, oriented to place, patient oriented x3 and No confusion HENMT Head: Yes normocephalic Ears: external ears normal and TM's normal bilaterally Face and sinus: No sinus tenderness Mouth: Normal oral and palatal mucosa present and tongue normal Teeth and gingiva: dentition normal and gingiva normal Throat: Yes posterior oropharynx normal, Yes tonsils normal and Yes uvula midline Eyes Conjunctivae: conjunctivae normal Sclerae: sclerae normal Pupils: Equal, round and reactive pupils present EOM: EOMs intact bilaterally Direct Ophthalmoscopy: No no photophobia Neck Neck: Yes no lymphadenopathy, No tender and Yes no JVD Thyroid: Thyroid normal Carotids: no bruits Chest Chest palpation & inspection: no tenderness Resp Effort & Inspection: normal respiratory effort, no audible wheezes, not labored and no stridor Auscultation: no crackles, no rales, no rhonchi and no wheezes Cardio Jugular venous distension: no JVD Rate: regular rate, not bradycardic and not tachycardic Rhythm: regular rhythm Bruits: no carotid bruits Peripheral pulses: Peripheral pulses 2+ throughout GI Inspection: Yes normal to inspection, No abdominal wall ecchymosis and No visible herniation Palpation (GI): Soft to palpation, nontender, no guarding, not rigid and No hepatosplenomegaly present Auscultation: normoactive bowel sounds General: Yes no CVA tenderness Back/Spine/Pelvis Back: no CVA tenderness and No back tenderness Cervical Spine: cervical ROM normal Thoracic/Lumbar Spine: thoracic and lumbar spine normal to inspection, straight leg raise negative bilaterally, No thoraco-lumbar ROM limited and No lumbar spinal tenderness Skin Lesions: no lesions Rashes: no rashes Wounds: no wounds Neuro General: oriented to person, oriented to place, patient oriented x3, CN's II-XI intact bilaterally and No confusion Cranial nerves: Yes Equal, round and reactive pupils present and Yes Normal accommodation reflex present Cognition (Neuro): normal cognition Speech: No Abnormal speech present Gait exam (Neuro): Normal gait present Motor exam (neuro): 5/5 motor strength present throughout Extrem Right upper extremity: full ROM; no cyanosis Left upper extremity: full ROM; no cyanosis Right lower extremity: no edema Left lower extremity: no edema Psych Appearance: grossly normal Mental Status: mental status grossly normal Affect: normal affect Attitude: cooperative Thought process: Normal thought process present Assessment and Plan Assessment & Plan (1) Annual physical exam: Code(s): Z00.00 - Encounter for general adult medical examination without abnormal findings (2) Cubital tunnel syndrome on right: Code(s): G56.21 - Lesion of ulnar nerve, right upper limb Plan: Patient's right elbow pain with radicular symptoms upright extremity concerning for nerve entrapment at the elbow. Will likely benefit from occupational therapy. (3) GERD (gastroesophageal reflux disease): Code(s): K21.9 - Gastro-esophageal reflux disease without esophagitis Qualifiers: Esophagitis presence: without esophagitis Qualified Code(s): K21.9 - Gastro-esophageal reflux disease without esophagitis Plan: He reports his GERD symptoms have been better with PPI therapy and simethicone. (4) Screening for diabetes mellitus (DM): Code(s): Z13.1 - Encounter for screening for diabetes mellitus (5) ADHD (attention deficit hyperactivity disorder): Code(s): F90.9 - Attention-deficit hyperactivity disorder, unspecified type Qualifiers: Attention deficit-hyperactivity disorder type: predominantly inattentive Qualified Code(s): F90.0 - Attention-deficit hyperactivity disorder, predominantly inattentive type Plan: He reports he is able to control his ADHD without medication. He has been doing well at his job without any lack of focus or attention. Orders: Orders OT Evaluation and Treatment Today G56.21 - Lesion of ulnar nerve, right upper limb Complete Blood Count no Diff Today K21.9 - Gastro-esophageal reflux disease without esophagitis Comprehensive [place]. Panel Fast Today Z13.1 - Encounter for screening for diabetes mellitus Medications: Changed From pantoprazole 20 mg PO DAILY 30 tabs 1RF K21.9 - Gastro-esophageal reflux disease without esophagitis To pantoprazole 20 mg PO DAILY 90 tabs 2RF 90 days K21.9 - Gastro-esophageal reflux disease without esophagitis Refilled simethicone (Gas Relief 80 (simethicone)) 80 mg PO TID-QID PRN 120 tabs 0RF abdominal distention 30 days K21.9 - Gastro-esophageal reflux disease without esophagitis Patient Instructions: Goals: Continue managing his ADHD symptoms with nonpharmacological techniques. Attend therapy for his right elbow issue. Barriers: Breakthrough ADHD symptoms, busy work life schedule. Coding Level of Care Code Est Pt Prev Care 18-39y(81199) Diagnoses Annual physical exam Z00.00 Cubital tunnel syndrome on right G56.21 Gastroesophageal reflux disease without esophagitis K21.9 Esophagitis presence: without esophagitis Screening for diabetes mellitus (DM) Z13.1 Attention deficit hyperactivity disorder (ADHD), predominantly inattentive type F90.0 Attention deficit-hyperactivity disorder type: predominantly inattentive Additional Codes JUAN C-7 Assessment Billing - JUAN C-7 Assessment Tool: JUAN C-7 Assessment [id number] ([id number])
== END 2023-07-13 08:23 | disposition home or self-care (01) ==
PROVIDERS: Visit Provider Physician Assistant
DX: Z00.00 Encounter for general adult medical examination without abnormal findings (principal); G56.21 Lesion of ulnar nerve, right upper limb; K21.9 Gastro-esophageal reflux disease without esophagitis; F90.0 Attention-deficit hyperactivity disorder, predominantly inattentive type
CPT/HCPCS: 99395

== ENCOUNTER 2023-07-23 13:24 | Outpatient (AMB) | payer OTHER, SELFPAY ==
[2023-07-23 13:32] VITALS: BP 130/84; PULSE 65; TEMP 36.9; O2SAT 97; BMI 28.7
--- NOTE | 2023-07-23 13:32 | AM.OFFWIN_ITS ---
Intake Vital Signs 07/23/23 13:32 Height 5 ft 11 in Weight 206 lb BMI 28.7 BP 130/84 Blood Pressure Location Lt brachial Position Sitting Pulse 65 Pulse Source Pulse Oximeter Temp 98.5 F Temp Source Oral Pulse Oximetry (%) 97 Oxygen Delivery Method Room Air Intake Visit Reasons: EP AB Pain Intake Note: Pt presents to the office today for abdominal pain. Pt states he has lower abdominal pain that started in his left side and now is his whole lower abdomen. He states it is shooting pain. It started about 1.5 weeks ago. Patient Tobacco Use Status: Never used Tobacco Allergies No Known Allergies [NO KNOWN ALLERGIES] Allergy (Unknown, Verified 07/23/23 13:34) unknown HPI HPI Comments History of Present Illness Details 23 y/o male patient who presents to walk in clinic with c/o RLQ to LLQ abdominal pain for 1.5 weeks now. Pt also c/o Constipation associated with hard stools and inability to fully empty. [facility] Surgical History S/P tonsillectomy No pertinent past surgical history Family History Father No problems noted. Mother No problems noted. Brother No problems noted. Sister No problems noted. Social History Housing: House Alcohol intake: current Alcohol intake frequency: holidays/special occasions only Patient Tobacco Use Status: Never used Tobacco e-Cigarette/Vaping Use: Former Use Second Hand Smoke Exposure: No Substance Use Type: Marijuana service: No Current occupational status: employed Current occupation: [employer] Cognitive needs: No Hearing needs: No Vision needs: Yes (contacts) Review of Systems Const All systems reviewed & are unremarkable except as noted in HPI and below Physical Exam Vital Signs: Last Vital Signs Temp 98.5 F 07/23/23 13:32 Pulse 65 07/23/23 13:32 BP 130/84 07/23/23 13:32 Pulse Ox 97 07/23/23 13:32 Oxygen Delivery Method Room Air 07/23/23 13:32 BMI result Body Mass Index 28.7 Const General: comfortable and no acute distress Nutritional Appearance: overweight Orientation/consciousness: patient oriented x3 GI Inspection: Yes distended Palpation (GI): Soft to palpation, not firm, Tenderness to palpation present (GI) in the epigastrum, in the LLQ and in the RLQ, No hepatosplenomegaly present, no hernias, no masses and no pulsatile masses Percussion: Yes dullness to percussion Auscultation: Hyperactive bowel sounds present Rectal Exam - Male: Yes deferred Neuro General: patient oriented x3, gait normal and moves all extremities Psych Speech and movement: Normal speech and movement present Assessment & Plan Assessment & Plan (1) Constipation: Code(s): K59.00 - Constipation, unspecified Qualifiers: Constipation type: slow transit constipation Qualified Code(s): K59.01 - Slow transit constipation Plan: - Increase water intake and fluids - Increase Fiber in Diet - Take medication as directed. - Explain to Pt medication side effects. Medications: New sennosides-docusate sodium 8.6-50 mg (Laxative Stool Softener With Senna) 1 tab- cap PO DAILY PRN 60 tabs 0RF constipation K59.01 - Slow transit constipation polyethylene glycol 3350 (Miralax) 17 grams PO DAILY 30 ea 0RF constipation K59.01 - Slow transit constipation Coding Level of Care Code Est Pt Level 3 (93631) Diagnoses Slow transit constipation K59.01 Constipation type: slow transit constipation Time Spent (min) 15
--- NOTE | 2023-07-23 13:32 | MHC.OFFWIV ---
Intake Vital Signs 07/23/23 13:32 07/23/23 13:32 Height 5 ft 11 in 5 ft 11 in Weight 209 lb BMI 29.1 Intake Visit Reasons: EP AB Pain Intake Note: pt is here today for AB pain started Patient Tobacco Use Status: Never used Tobacco Allergies No Known Allergies [NO KNOWN ALLERGIES] Allergy (Unknown, Verified 07/13/23 08:06) unknown PFSH Surgical History S/P tonsillectomy No pertinent past surgical history Family History Father No problems noted. Mother No problems noted. Brother No problems noted. Sister No problems noted. Social History (Updated 07/13/23 @ 08:10 by Chano Hi PA-C) Housing: House Alcohol intake: current Alcohol intake frequency: holidays/special occasions only Patient Tobacco Use Status: Never used Tobacco e-Cigarette/Vaping Use: Former Use Second Hand Smoke Exposure: No Substance Use Type: Marijuana service: No Current occupational status: employed Current occupation: [employer] Cognitive needs: No Hearing needs: No Vision needs: Yes (contacts) Coding
== END 2023-07-23 14:12 | disposition home or self-care (01) ==
PROVIDERS: PCP Physician Assistant; Visit Provider Nurse Practitioner Family
DX: K59.01 Slow transit constipation (principal)
CPT/HCPCS: 99213

== ENCOUNTER 2023-09-07 15:00 | Outpatient (RCR) | payer OTHER, SELFPAY ==
--- NOTE | 2023-08-25 08:54 | MHC.OT.EP ---
[address] [phone] Occupational Therapy Plan of Care Patient Name: Ton Mei Date of Evaluation: 08/25/23 Diagnosis: Right Cubital Tunnel Syndrome Pain Location: Numbness at baseline 7/10 sharp pain in right medial elbow, radial down forearm and up to neck at times Tenderness to palpate over right medial/volar forearm, tightness Pain Score: 7 Pain Scale Used: Numeric (0 - 10) Aggravating Factors: Resting arm/elbow on table, gym work-outs (dumbells) Alleviating Factors: Ice Assessment: 23 yo male injured right elbow two years ago when colliding a player during a basketball game. He was seen in walk-in clinic at the time, x-ray (-) for acute changes. He has since been limiting his regular daily activities and avoiding heavy lifting at the gym. On assessment today, he he mild edema in medial and posterior right elbow, (+) Tinels over cubital tunnel and pain w/ prolonged elbow flex to end range. Symptoms consistent w/ right cubital tunnel and distal triceps tendinitis. I anticipate he will do well w/ course of OT to reuce inflammation and pain with focus on activity modification. Frequency and Duration: The patient will be seen 2x/wk for 4 weeks Short Term Goals: Ind w/ HEP Good follow through w/ activity modification with daily activities Pt to report ease with nighttime symptoms through positions modifications Group Home Goals: Progress to resisted triceps exercises w/ modifications as needed Pain free use of right arm w/ normal daily activities (work, lawn care, etc) QuickDASH score <20 pts Right gross grasp WFL (per left side) Treatment Plan: Therapeutic Exercise Therapeutic Activity Home Exercise Program Splinting Patient Education Edema Control ADL Training Iontophoresis MHP Cold Packs Joint Mobilization Soft Tissue Mobilization Kinesiotaping Ionto w/ dexmethasone Nighttime wrist orthosis PRN Electronically Signed By: FAY Landis/Ravindra CHT Please Sign and return to therapist. Thank you once again for your referral.
--- NOTE | 2023-10-15 08:46 | MHC.OT.DC ---
[address] [phone] F: [phone] Occupational Therapy Discharge Note Patient Name: Ton Mei Provider: Chano Hi PA-C Diagnosis: Right Cubital Tunnel Syndrome Date of Evaluation: 08/25/23 Date of Discharge: 10/15/23 Treatments to Date: 3 Cancellations to Date: 1 Discharge Status: Independent with HEP Patient Elected to Stop Discharge Summary: Ton was referred to OT w/ right cubital tunnel syndrome s/p traumatic injury two years ago. He was educated on home exercise program and joint protection, but did not follow up for further visits, we will be discharging from services at this time. Electronically Signed By: FAY Landis/Ravindra MITCHELLT Reviewed/agree with student documentation: N/A Therapist: Please Sign and return to therapist, thank you for your referral.
== END 2023-10-15 08:46 | disposition home or self-care (01) ==
LOC: HO.OT 15:00
PROVIDERS: PCP Physician Assistant; Visit Provider Physician Assistant
DX: G56.21 Lesion of ulnar nerve, right upper limb (principal)
CPT/HCPCS: 97033; 97110; 97112; 97140; 97165

== ENCOUNTER 2024-07-17 07:53 | Outpatient (AMB) | payer OTHER, SELFPAY ==
--- OUTSIDE RECORDS SUMMARY | 2024-07-17 07:58 | XMS_ITS | Encounter Summary ---
Author Organization [facility] Address [address] [place] [phone] Phone Care Team Providers Care Special Event Assistant Name Role Phone Madison Burton ENTERPRISE INTEGRATION ARCHITECT Primary Care Provider Un available Encounter Details Date Type Department Care Team (Late st Contact Info) Description 12/11/2011 Documentation [facility] [place] [facility] [place], [place] [phone] Family Medicine, Physician [address] [place] [address] Social History Tobacco Use Types Packs/Day Years Used Date Smoking Tobacco: Never Assessed Sex and Gender Information Value Date Recorded Sex Assigned at Not on file Legal Sex Male 5:05 PM EDT Gender Identity Not on file Sexual Orientation Not on file documented as of this encounter Plan of Treatment Not on file documented as of this encounter Visit Diagnoses Not on filedocumented in this encounter Care Teams Special Event Assistant Relationship Specialty Start Date End Date Madison Burton NP PCP - General 11/06/16 documented as of this encounter
--- OUTSIDE RECORDS SUMMARY | 2024-07-17 07:58 | XMS_ITS | Encounter Summary ---
Author Organization [facility] Address [address] [place] [phone] Phone Care Team Providers Care Wire Sawyer Name Role Phone Madison Burton PRODUCT TESTER Primary Care Provider Un available Encounter Details Date Type Department Care Team (Late st Contact Info) Description 11/12/2016 Conversion Encounter [facility] - [address] [phone] Social History Tobacco Use Types Packs/Day Years Used Date Smoking Tobacco: Never Comments:Never smoker Sex and Gender Information Value Date Recorded Sex Assigned at Not on file Legal Sex Male 5:05 PM EDT Gender Identity Not on file Sexual Orientation Not on file documented as of this encounter Plan of Treatment Not on file documented as of this encounter Visit Diagnoses Not on filedocumented in this encounter Care Teams Wire Sawyer Relationship Specialty Start Date End Date Madison Burton NP PCP - General 11/06/16 documented as of this encounter
--- OUTSIDE RECORDS SUMMARY | 2024-07-17 07:58 | XMS_ITS | Encounter Summary ---
Author Organization [facility] Address [address] [place] [phone] Phone Care Team Providers Care Doll Surgeon Name Role Phone Madison Burton AP PROCESSOR Primary Care Provider Un available Encounter Details Date Type Department Care Team (Late st Contact Info) Description 12/11/2011 Documentation [facility] [place] [facility] [address] [place], [place] [phone] Family Medicine, Physician [address] [place] [address] Social History Tobacco Use Types Packs/Day Years [...] on filedocumented in this encounter Care Teams Doll Surgeon Relationship Specialty Start Date End Date Madison Burton NP PCP - General 11/06/16 documented as of this encounter
--- NOTE | 2024-07-17 08:09 | A.OFFPC_ITS ---
Vital Signs 07/17/24 08:10 Height 5 ft 11 in Weight 179 lb 6 oz BMI 25.0 BP 112/68 Blood Pressure Location Lt brachial Position Sitting Pulse 57 Pulse Source Pulse Oximeter Temp 97.3 F Temp Source Temporal Artery Scan Pulse Oximetry (%) 99 Oxygen Delivery Method Room Air Intake Visit Reasons: PE Intake Note: Patient is here today for a physical. Cargo Supervisor Required: No Gate Guard: Not Required per policy Accompanied by: Self / Same As Patient Allergies No Known Allergies [NO KNOWN ALLERGIES] Allergy (Unknown, Verified 07/17/24 08:16) unknown Medication List - Last Reconciled 07/17/24 by Chano Hi PA-C pantoprazole 20 mg PO DAILY 90 days polyethylene glycol 3350 (Miralax) 17 grams PO DAILY sennosides-docusate sodium 8.6-50 mg (Laxative Stool Softener With Senna) 1 tab- cap PO DAILY PRN simethicone (Gas Relief 80 (simethicone)) 80 mg PO TID-QID PRN 30 days Tobacco use date assessed: 07/17/24 Dental Screening Dental Screen Date: 07/17/24 Did you have a dental visit in the last 12 months?: No Did you have a dental problem in the last 6 months where you did not have access to dental care?: No Was dental information given to patient?: No HPI PE HPI Details Patient is a 24-year-old male here today for annual physical. Patient has a past medical history significant for ADHD. .. ADHD: Has discontinued his use of Concerta as he felt it he does not needed anymore. 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 Vaccines: Up-to-date with COVID vaccine, tetanus vaccine, did not get annual flu vaccine [facility] Medical History Peritonsillar abscess Surgical History S/P tonsillectomy No pertinent past surgical history Family History Father No problems noted. Mother No problems noted. Brother No problems noted. Sister No problems noted. Social History Housing: House Alcohol intake: current Alcohol intake frequency: a few times a month Alcohol type: beer Patient Tobacco Use Status: Never used Tobacco e-Cigarette/Vaping Use: Former Use Second Hand Smoke Exposure: No Substance Use Type: Marijuana service: No Current occupational status: employed Current occupation: [employer] Cognitive needs: No Hearing needs: No Vision needs: Yes (contacts) Questionnaire PHQ-9 Over the last 2 weeks, how often have you been bothered by any of the following problems? 1. Little interest or pleasure in doing things: not at all 2. Feeling down, depressed, or hopeless: not at all 3. Trouble falling or staying asleep, or sleeping too much: not at all 4. Feeling tired or having little energy: not at all 5. Poor appetite or overeating: not at all 6. Feeling bad about yourself - or that you are a failure or have let yourself or your family down: not at all 7. Trouble concentrating on things, such as reading the newspaper or watching television: not at all 8. Moving or speaking so slowly that other people could have noticed. Or the opposite - being so fidgety or restless that you have been moving around a lot more than usual: not at all 9. Thoughts that you would be better off or of hurting yourself in some way: not at all Total score: 0 Depression Screening Interpretation: Negative Depression Screening Done: Yes 92226 - PHQ-9 Billing: Yes Source: Developed by Drs. Simon Pompa, Kamilla Merino, Max Pete and colleagues, with an educational mane from [employer]. Thrive Questionnaire Date Thrive assessed: 07/17/24 I am a: Patient What is your living situation today?: I have a steady place to live Within the past 12 months, did the food you bought not last and you didn't have the money to get more?: Never true Within the past 12 months, did you worry whether your food would run out before you got money to buy more?: Never true Do you have trouble paying for medicines?: No Do you have trouble getting transportation to medical appointments?: No Do you have trouble paying your heating and electricity bill?: No Do you have trouble taking care of your child, family member or friend?: No Do you have trouble with day-to-day activities such as bathing, preparing meals, shopping, managing finances, etc.?: No Are you currently unemployed and looking for a job?: No Are you interested in more education?: No Please select the resources that you would like help with: Food Currently or been in a relationship where the following occur: I choose not to answer THRIVE Score: 0 AUDIT C Alcohol Use Questionnaire (AUDIT-C) 1. How often do you have a drink containing alcohol?: 2-4 times a month 2. How many drinks containing alcohol do you have on a typical day when you are drinking?: 1 or 2 3. How often do you have six or more drinks on one occasion?: Never Total Score: 2 JUAN C-7 AMB Questionnaire JUAN C-7 Date JUAN C - 7 assessed: 07/17/24 Feeling nervous, anxious, or on edge: 0 = Not at all Not being able to stop or control worryin = Not at all Worrying too much about different things: 0 = Not at all Trouble relaxin = Not at all Being so restless that it is hard to sit still: 0 = Not at all Becoming easily annoyed or irritable: 0 = Not at all Feeling afraid as if something awful might happen: 0 = Not at all Total JUAN C-7 score (0-4 normal; 5-9 mild; 10-14 moderate; 15-21 severe): 0 Source: Developed by Drs. Simon Pompa, Kamilla Merino, Max Pete and colleagues, with an educational mane from [employer]. JUAN C-7 Assessment Billing JUAN C-7 Assessment Tool: JUAN C-7 Assessment 35574 Review of Systems Const Denies body aches, Denies chills, Denies excessive sweating, Denies fatigue, Denies fever(s) and Denies headache(s) Eyes Denies blurry vision ENT Denies dysphagia, Denies vertigo, Denies dizziness, Denies headache(s), Denies hearing loss and Denies tinnitus Card Denies chest pain, Denies chest pain with activity, Denies syncope, Denies irregular heart rhythm and Denies dyspnea Resp Denies chest congestion, Denies cough, Denies hemoptysis, Denies dyspnea and Denies wheezing GI Denies abdominal pain, Denies melena, Denies hematochezia, Denies coffee ground emesis, Denies dysphagia, Denies diarrhea, Denies nausea and Denies vomiting Denies difficulty urinating, Denies dysuria, Denies urinary frequency, Denies urinary hesitancy and Denies urinary urgency Musc Denies arthralgias, Denies limited range of motion, Denies muscle cramps and Denies muscle weakness Skin/Breast Denies rash and Denies skin ulcer Neuro Denies Abnormal speech present, Denies confusion, Denies vertigo, Denies dizziness, Denies syncope, Denies headache(s), Denies memory loss and Denies seizure-like activity Psych Denies anxiety, Denies confusion, Denies depression, Denies memory loss, Denies panic attacks and Denies paranoia Endo Denies excessive sweating, Denies fatigue, Denies flushing, Denies polydipsia and Denies polyuria Aller/Immun Denies wheezing Physical exam (Primary Care) Vital Signs: Last Vital Signs Temp 97.3 F 07/17/24 08:10 Pulse 57 07/17/24 08:10 BP 112/68 07/17/24 08:10 Pulse Ox 99 07/17/24 08:10 Oxygen Delivery Method Room Air 07/17/24 08:10 BMI result Body Mass Index 25.0 Tobacco/Smoking Status: Tobacco use Status Tobacco use date assessed 07/17/24 07/17/24 08:14 Patient Tobacco Use Status Never used Tobacco 07/17/24 08:14 e-Cigarette/Vaping Use Former Use 07/17/24 08:14 PHQ-9: PHQ-9 Score PHQ-9: Total score 0 07/17/24 08:14 Depression Screening Interpretation: Negative Thrive Assessment: Date of Thrive Assessment Date Thrive assessed 07/17/24 07/17/24 08:14 Currently or been in a relationship where the following occur: I choose not to answer Const General: cooperative, comfortable, no acute distress, alert and awake; No confusion Orientation/consciousness: oriented to person, oriented to place, patient oriented x3 and No confusion HENMT Head: Yes normocephalic Ears: external ears normal and TM's normal bilaterally Face and sinus: No sinus tenderness Mouth: Normal oral and palatal mucosa present and tongue normal Teeth and gingiva: dentition normal and gingiva normal Throat: Yes posterior oropharynx normal, Yes tonsils normal and Yes uvula midline Eyes Conjunctivae: conjunctivae normal Sclerae: sclerae normal Pupils: Equal, round and reactive pupils present EOM: EOMs intact bilaterally Direct Ophthalmoscopy: No no photophobia Neck Neck: Yes no lymphadenopathy, No tender and Yes no JVD Thyroid: Thyroid normal Carotids: no bruits Chest Chest palpation & inspection: no tenderness Resp Effort & Inspection: normal respiratory effort, no audible wheezes, not labored and no stridor Auscultation: no crackles, no rales, no rhonchi and no wheezes Cardio Jugular venous distension: no JVD Rate: regular rate, not bradycardic and not tachycardic Rhythm: regular rhythm Bruits: no carotid bruits Peripheral pulses: Peripheral pulses 2+ throughout GI Inspection: Yes normal to inspection, No abdominal wall ecchymosis and No visible herniation Palpation (GI): Soft to palpation, nontender, no guarding, not rigid and No hepatosplenomegaly present Auscultation: normoactive bowel sounds General: Yes no CVA tenderness Back/Spine/Pelvis Back: no CVA tenderness and No back tenderness Cervical Spine: cervical ROM normal Thoracic/Lumbar Spine: thoracic and lumbar spine normal to inspection, straight leg raise negative bilaterally, No thoraco-lumbar ROM limited and No lumbar spinal tenderness Skin Lesions: no lesions Rashes: no rashes Wounds: no wounds Neuro General: oriented to person, oriented to place, patient oriented x3, CN's II-XI intact bilaterally and No confusion Cranial nerves: Yes Equal, round and reactive pupils present and Yes Normal accommodation reflex present Cognition (Neuro): normal cognition Speech: No Abnormal speech present Gait exam (Neuro): Normal gait present Motor exam (neuro): 5/5 motor strength present throughout Extrem Right upper extremity: full ROM; no cyanosis Left upper extremity: full ROM; no cyanosis Right lower extremity: no edema Left lower extremity: no edema Psych Appearance: grossly normal Mental Status: mental status grossly normal Affect: normal affect Attitude: cooperative Thought process: Normal thought process present Coding Level of Care Code Est Pt Prev Care 18-39y(19903) Diagnoses Annual physical exam Z00.00 Attention deficit hyperactivity disorder (ADHD), predominantly inattentive type F90.0 Attention deficit-hyperactivity disorder type: predominantly inattentive Additional Codes PHQ-9 - 56487 - PHQ-9 Billing: Yes ([id number]) JUAN C-7 Assessment Billing - JUAN C-7 Assessment Tool: JUAN C-7 Assessment 66869 ([id number]) Assessment & Plan Assessment & Plan (1) Annual physical exam: Code(s): Z00.00 - Encounter for general adult medical examination without abnormal findings Category: Medical Plan: As per HPI (2) ADHD (attention deficit hyperactivity disorder): Code(s): F90.9 - Attention-deficit hyperactivity disorder, unspecified type Category: Medical Qualifiers: Attention deficit-hyperactivity disorder type: predominantly inattentive Qualified Code(s): F90.0 - Attention-deficit hyperactivity disorder, predominantly inattentive type Plan: Patient has a history of ADHD and was on Concerta in the past. He has been off of consider for quite some time now and does not feel he needs further ADHD medication. He works a full-time job at a [employer] and does well with his concentration and focus on his detail to work tasks. Orders: Orders Comprehensive [place]. Panel Fast Today Z13.1 - Encounter for screening for diabetes mellitus Complete Blood Count no Diff Today Z13.1 - Encounter for screening for diabetes mellitus
[2024-07-17 08:10] VITALS: BP 112/68; PULSE 57; TEMP 36.3; O2SAT 99; BMI 25.0
== END 2024-07-17 08:29 | disposition home or self-care (01) ==
LOC: HO.HMCH 07:54
PROVIDERS: PCP Physician Assistant; Visit Provider Physician Assistant
DX: Z00.00 Encounter for general adult medical examination without abnormal findings (principal); F90.0 Attention-deficit hyperactivity disorder, predominantly inattentive type

== ENCOUNTER → 2024-07-17 07:53 | Outpatient (BNVA) | payer OTHER, SELFPAY | PROVIDERS: PCP Physician Assistant; Visit Provider Physician Assistant | DX: Z00.00 Encounter for general adult medical examination without abnormal findings (principal); F90.0 Attention-deficit hyperactivity disorder, predominantly inattentive type | CPT/HCPCS: 96127 ==